=== PATIENT | male | born 1965 | race Caucasian/White ===

== ENCOUNTER 2016-12-20 06:35 | Emergency (ER) | payer MEDICAID ==
[~2016-12-20] VITALS: Ht 182.9 cm; Wt 115.8 kg
[2016-12-20] MEDS ORDERED: ASPIRIN 81 MG TABLET CHEW PO ONE (07:00)
[2016-12-20] MEDS ORDERED: ASPIRIN 81 MG TABLET CHEW ONE (07:03)
[2016-12-20 07:04] LABS: HEMATOCRIT 50.3 % (39.2-51.8); HEMOGLOBIN 16.9 g/dL (13.7-18.0); WHITE BLOOD COUNT 10.3 x10^3/uL (3.4-10)
[2016-12-20 07:14] LABS: BLOOD UREA NITROGEN 14 mg/dL (7-18)
[2016-12-20 07:19] LABS: IS PT STATUS REG ER OR PRE ER? YES
[2016-12-20] MEDS ORDERED: KETOROLAC 30 MG/1 ML IM ONE (07:30)
[2016-12-20] MEDS ORDERED: KETOROLAC 30 MG/1 ML ONE (07:31)
[2016-12-20 08:21] VITALS: BP 121/87
== END 2016-12-20 08:23 | disposition home or self-care (01) ==
LOC: ED 07:15
DX: R07.89 Other chest pain (principal); Z87.891 Personal history of nicotine dependence
CPT/HCPCS: 36415; 71010; 80048; 82040; 83880; 84484; 85025; 93005; 96372; 99285; J1885

== ENCOUNTER 2018-01-04 23:55 | Emergency (ER) | payer MEDICAID ==
[~2018-01-04] VITALS: Ht 182.9 cm; Wt 118.5 kg
[2018-01-04 23:59] VITALS: BP 155/98
== END 2018-01-05 00:55 | disposition home or self-care (01) ==
LOC: ED 01-05 00:49
DX: L03.115 Cellulitis of right lower limb (principal); Z87.891 Personal history of nicotine dependence
CPT/HCPCS: 99283